=== PATIENT | male | born 1960 | race Caucasian/White ===

== ENCOUNTER 2024-12-15 06:16 | Day surgery (SDC) | payer BC ==
[~2024-12-15] VITALS: Ht 180.3 cm; Wt 73.0 kg
[~2024-12-15 06:16] MED LIST: LEVSOD137 PO; LISI20 PO
[2024-12-15] MEDS ORDERED: Ondansetron HCl 2 MG / ML 2ML Vial ONE (08:46)
[2024-12-15 09:35] VITALS: BP 105/66
== END 2024-12-15 09:27 | disposition home or self-care (01) ==
LOC: ORSCSDS 06:16
PROVIDERS: Internal Medicine Gastroenterology
PROC: 0DBH8ZX Excision of Cecum, Via Natural or Artificial Opening Endoscopic, Diagnostic (ICD-10-PCS; principal; 2024-12-15 08:00)
PROC: 0DBK8ZX Excision of Ascending Colon, Via Natural or Artificial Opening Endoscopic, Diagnostic (ICD-10-PCS; principal; 2024-12-15 08:00)
DX: Z12.11 Encounter for screening for malignant neoplasm of colon (principal); Z86.0101 Personal history of adenomatous and serrated colon polyps; D12.0 Benign neoplasm of cecum; D12.2 Benign neoplasm of ascending colon; K57.30 Diverticulosis of large intestine without perforation or abscess without bleeding; Z79.899 Other long term (current) drug therapy
CPT/HCPCS: 88305; J2405; J2704; J7120